=== PATIENT | male | born 1980 | race Caucasian/White ===

== ENCOUNTER → 2024-05-03 | Outpatient (CLI) | payer OTHER | LOC: M CARPUL 09:19 | PROVIDERS: ATTEND Student in an Organized Health Care Education/Training Program | DX: J45.909 Unspecified asthma, uncomplicated (principal) ==

== ENCOUNTER 2024-06-24 23:15 | Emergency (ER) | payer OTHER ==
[~2024-06-24] VITALS: Ht 177.8 cm; Wt 119.2 kg
[2024-06-24 23:16] VITALS: BP 148/92; TEMP 97.1
[2024-06-25 01:00] VITALS: O2SAT 97
[2024-06-25] MEDS: MORPHINE 4 MG/ML 1ML VIAL IV ONE (01:00)
[2024-06-25 01:07] LABS: BASO # 0.1 10^3/uL (0.0-0.2); BASO % 0.9 % (0.0-1.0); EOS # 0.3 10^3/uL (0.0-0.5); EOS % 3.3 % (0.0-3.0); HEMATOCRIT 47.8 % (42.0-52.0); HEMOGLOBIN 16.7 g/dl (13.5-17.5); LYMPH # 3.1 10^3/uL (1.5-5.0); LYMPH % 30.8 % (24.0-44.0); MEAN CORPUSCULAR HGB CONC 34.9 g/dl (32.0-36.5); MEAN CORPUSCULAR VOLUME 88.7 fl (80.0-96.0); MONO # 0.7 10^3/uL (0.0-0.8); MONO % 6.8 % (2.0-8.0); NEUTROPHILS # 5.8 10^3/uL (1.5-8.5); NEUTROPHILS % 57.5 % (36.0-66.0); PLATELET COUNT, AUTOMATED 267 10^3/uL (150-450); RED BLOOD COUNT 5.39 10^6/uL (4.30-6.10); WHITE BLOOD COUNT 10.1 10^3/uL (4.0-10.0)
[2024-06-25] MEDS ORDERED: ISOVUE-370 76% 100ML VIAL As Ordered ONE (01:11)
[2024-06-25 01:13] LABS: ERYTHROCYTE SEDIMENTATION RATE 17 mm/hr (0-15)
[2024-06-25] MEDS: KETOROLAC 30 MG/ML 1ML VIAL IV ONE (01:29)
== END 2024-06-25 01:46 | disposition home or self-care (01) ==
LOC: M ED 23:15
DX: R68.84 Jaw pain (principal); Z88.0 Allergy status to penicillin; Z88.1 Allergy status to other antibiotic agents; Z88.8 Allergy status to other drugs, medicaments and biological substances
CPT/HCPCS: 70491; 80047; 85025; 85652; 86140; 96374; 96375; 99283; J1885; Q9967